=== PATIENT | male | born 1960 | race Caucasian/White ===

== ENCOUNTER 2020-05-05 10:17 | Outpatient (CLI) | payer OTHER ==
--- NOTE | 2020-05-05 13:05 | RAD ---
RADER VIEW OF THE SINUSES: HISTORY: MRI clearance. FINDINGS: No metallic foreign body is seen. The sinuses are clear. IMPRESSION: No evidence of metallic foreign body. POS: OFF
--- NOTE | 2020-05-05 13:42 | MRI ---
MRI OF BRAIN WITH AND WITHOUT CONTRAST: 05/05/20 INDICATIONS: Chronic right sided headaches and right facial numbness. Facial nerve protocol was followed. FINDINGS: Ventricles have normal size and position. Mild chronic ischemic white matter changes. No evidence of restricted diffusion. No mass or edema. Fifth cranial nerves are well seen bilaterally . No abnormality seen along the course of the fifth cranial nerve. Cavernous sinus appears unremarkab le. Cerebral vessels showed expected flow voids. Dural venous sinuses appear patent. Orbits are unremarka ble. 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 IMPRESSION: Very mild chronic ischemic white matter change. MRI of the brain otherwise unremarkable. POS: AGW
[2020-05-05] MEDS ORDERED: Magnevist 469MG/ML 20 ML VIAL ONE (14:10)
== END 2020-05-05 10:18 | disposition home or self-care (01) ==
LOC: BICMRI 10:17
PROVIDERS: ATTEND Family Medicine Sports Medicine
DX: R51 Headache (principal)
CPT/HCPCS: 70210; 70553; 82565; A9579